=== PATIENT | female | born 2000 | race Caucasian/White ===

== ENCOUNTER 2019-01-05 13:02 | Observation (INO) | payer OTHER ==
[2019-01-05 15:41] VITALS: BP 128/64
[2019-01-05 16:22] LABS: BASOPHILS % (AUTO) 0.4 % (0.0-2.0); EOSINOPHILS % (AUTO) 0.7 % (1.0-6.0); HEMOGLOBIN 10.1 g/dL (12.0-16.0); LYMPHOCYTES # (AUTO) 1.7 K/uL (1.0-4.8); MEAN CORPUSCULAR HEMOGLOBIN 26.2 pg (26.0-34.0); MEAN CORPUSCULAR HGB CONC 32.7 G/dL (31.0-37.0); MEAN CORPUSCULAR VOLUME 80 fL (80-100); MONOCYTES # (AUTO) 0.6 K/uL (0.1-1.0); MONOCYTES % (AUTO) 9.6 % (2.0-9.0); NEUTROPHILS % (AUTO) 62.3 % (40.0-70.0); PLATELET COUNT (AUTO)-OB 269 K/uL (150-450); RED BLOOD CELL COUNT(AUTO) 3.86 MIL/uL (4.00-5.20); RED CELL DISTRIBUTION WIDTH 15.2 % (11.5-14.5)
[2019-01-05 19:21] LABS: RUBELLA SCREEN (IGG) IMMUNE (IMMUNE)
== END 2019-01-05 16:25 | disposition home or self-care (01) ==
LOC: 4S 13:02
PROVIDERS: ADMIT Obstetrics & Gynecology; ATTEND Obstetrics & Gynecology
DX: O26.893 Other specified pregnancy related conditions, third trimester (principal); R10.9 Unspecified abdominal pain; Z3A.37 37 weeks gestation of pregnancy
CPT/HCPCS: 36415; 76811; 80307 ×8; 81002; 85025; 86592; 86762; 86901; 87340; G0378

== ENCOUNTER 2019-01-19 12:30 | Observation (INO) | payer OTHER ==
[~2019-01-19] VITALS: Ht 157.5 cm; Wt 65.3 kg
[2019-01-24] MEDS ORDERED: IBUP-2071 PO (10:02)
[2019-01-24] MEDS ORDERED: FERR-89 PO (10:03)
[2019-01-24] MEDS ORDERED: DSS100 PO (10:03)
== END 2019-01-19 16:05 | disposition home or self-care (01) ==
LOC: 4S 12:30
PROVIDERS: ADMIT Obstetrics & Gynecology; ATTEND Obstetrics & Gynecology
DX: O36.8130 Decreased fetal movements, third trimester, not applicable or unspecified (principal); O26.893 Other specified pregnancy related conditions, third trimester; R42 Dizziness and giddiness; Z3A.39 39 weeks gestation of pregnancy
CPT/HCPCS: 81002; G0378